=== PATIENT | male | born 1955 | race Two or more races ===

== ENCOUNTER 2025-03-09 12:25 | Emergency (ER) | payer OTHER ==
[~2025-03-09] VITALS: Ht 182.9 cm; Wt 77.0 kg
--- NOTE | 2025-03-09 12:35 | ED.PDOC ---
GI ASSESSMENT HPI Comments 69 y.o male coming from [facility], with PMHx of GERD, DM and HTN, presents to the ED via EMS for a chief complaint of diffused abdominal pain associated with nausea and coffee ground emesis that started last night. Patient describes pain as a burning sensation that is constant and has no alleviating or precipitating factors. Patient has vomited a total of 6 times today recorded by staff in which all were described as coffee ground with no bright red blood nor blood clots noted. 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 Patient denies any fever, chills, dysuria, cough, SOB or chest pain. Time Seen by MD: 12:26 Reviewed Notes: Nurses Notes, Assessment Analyst Notes, Medications, Allergies Allergies: Coded Allergies: NO KNOWN ALLERGIES (Unverified , 03/09/25) Home Meds Active Scripts Amoxicillin Trihydrate (Amoxicillin) 500 Mg Tab, 1 TAB PO TID for 5 Days, #15 TAB Prov:ADA MURRAY MD 03/09/25 Ondansetron Odt 4MG Tab (ZOFRAN PO) 4 Mg Tb, 4 MG PO DAILY for 5 Days, #5 TAB ODT TAB-DISSOLVE IN MOUTH, THEN SWALLOW Prov:ADA MURRAY MD 03/09/25 Metronidazole (Flagyl) 500 Mg Tab, 1 TAB PO TID for 5 Days, #15 TAB Prov:ADA MURRAY MD 03/09/25 Information Source: Patient, Emergency Med Personnel, Past Medical Record Mode of Arrival: EMS Timing: Hours Duration: Since onset Prehospital treatment: Treatment (4mg zofran ODT ) Quality: Burning Vomitus: Coffee Grounds Stool: Normal Severity: Moderate Recent: None Recent Hx of: Other Pain Location: Diffuse Modifying Factors: Nothing Associated sign and symptoms: Nausea, Vomiting, Abdominal Pain Past Medical History PAST MEDICAL HISTORY: DM, GERD, HTN Surgical History: AKA (bilateral legs ) Family History Family History: Reviewed,noncontributory to illness Social History Smoker: Non-Smoker Alcohol: Denies ETOH Use Drugs: Denies Drug Use Lives In: Home Constitutional: denies: chills, diaphoresis, fatigue, fever, malaise, sweats, weakness, others EENTM: denies: blurred vision, double vision, ear bleeding, ear discharge, ear drainage, ear pain, ear ringing, eye pain, eye redness, hearing loss, mouth pain, mouth swelling, nasal discharge, nose bleeding, nose congestion, nose pain, photophobia, tearing, throat pain, throat swelling, voice changes, others Respiratory: denies: cough, hemoptysis, orthopnea, SOB at rest, shortness of breath, SOB with excertion, stridor, wheezing, others Gastrointestinal: reports: abdominal pain, nausea, vomiting; denies: abdomen distended, blood streaked bowels, constipated, diarrhea, dysphagia, difficulty swallowing, hematemesis, melena, poor appetite, poor fluid intake, rectal bleeding, rectal pain, others Genitourinary: denies: burning, dysuria, flank pain, frequency, hematuria, incontinence, penile discharge, penile sore, pain, testicle pain, testicle swelling, urgency, others Neurological: denies: dizziness, fainting, headache, left sided numbness, left sided weakness, numbness, paresthesia, pre-existing deficit, right sided numbness, right sided weakness, seizure, speech problems, tingling, tremors, weakness, others Musculoskeletal: denies: back pain, gout, joint pain, joint swelling, muscle pain, muscle stiffness, neck pain, others Integumetry: denies: bruises, change in color, change in hair/nails, dryness, laceration, lesions, lumps, rash, wounds, others Allergic/Immunocompromised: denies: Difficulty Healing, Frequent Infections, Hives, Itching, others Hematologic/Lymphatic: denies: anemia, blood clots, easy bleeding, easy brui sing, swollen glands, others Endocrine: denies: excessive hunger, excessive sweating, excessive thirst, ex cessive urination, flushing, intolerance to cold, intolerance to heat, unexplained weight gain, unexplained weight loss, others Psychiatric: denies: anxiety, bipolar disorder, depression, hopeless, panic disorder, schizophrenia, sleepless, suicidal, others All Other Systems: Reviewed and Negative Physical Exam General Appearance: Moderate Distress HEENT: Normal ENT Inspection, Pharynx Normal, TMs Normal Neck: Full Range of Motion, Non-Tender, Normal, Normal Inspection Respiratory: Chest Non-Tender, Lungs Clear, No Accessory Muscle Use, No Respiratory Distress, Normal Breath Sounds Cardiovascular: No Edema, No JVD, No Murmur, No Gallop, Normal Peripheral Pulses, Regular Rate/Rhythm Breast Exam: Deferred Gastrointestinal: No Organomegaly, Non Tender, No Pulsatile Mass, Normal Bowel Sounds, Soft Genitalia: Deferred Pelvic: Deferred Rectal: Deferred Extremities: No calf tenderness Musculoskeletal : Apperance: Normal Neurologic: Alert Cerebellar Function: Normal Reflexes: Normal Skin: Dry, Normal Color, Warm Peripheral Pulses: 3+ Radial (R), 3+ Radial (L) Lymphatic: No Adenopathy Was a procedure done? Was a procedure done?: No GI differential Dx Differential Diagnosis: Constipation, Diverticular disease, Esophageal rupture, Esophagitis, Gastritis/PUD, Gastroenteritis, GI hemorrhage, Electrolyte Imbalance, Ischemic Bowel, Anemia, Esophageal Varicies, Stress Ulcer X-Ray, Labs, Meds, VS Vital Signs Date Time Temp Pulse Resp B/P (MAP) Pulse Ox O2 Delivery O2 Flow Rate FiO2 03/09/25 16:00 97.8 91 10 134/68 (90) 97 97.8 03/09/25 15:20 83 10 134/68 03/09/25 14:55 90 12 160/76 03/09/25 13:30 97.8 86 10 159/81 (107) 97 97.8 03/09/25 12:31 98.2 92 18 153/83 (106) 95 98.2 Lab Test 03/09/25 12:58 Range/Units White Blood Count 11.0 H 4.4-10.8 10^3/uL Red Blood Count 4.00 L 4.5-5.90 10^6/uL Hemoglobin 13.6 13.5-17.5 g/dL Hematocrit 39.8 L 41.0-53.0 % Mean Corpuscular Volume 99.5 80.0-100.0 fL Mean Corpuscular Hemoglobin 34.0 H 28.0-32.0 pg Mean Corpuscular Hemoglobin Concent 34.2 32.0-36.0 g/dL Red Cell Distribution Width 13.1 11.8-14.3 % Platelet Count 234 140-450 10^3/uL Mean Platelet Volume 9.4 6.9-10.8 fL Neutrophils (%) (Auto) 82.8 H 37.0-80.0 % Lymphocytes (%) (Auto) 7.8 L 10.0-50.0 % Monocytes (%) (Auto) 8.7 0.0-12.0 % Eosinophils (%) (Auto) 0.2 0.0-7.0 % Basophils (%) (Auto) 0.5 0.0-2.0 % Neutrophils # (Auto) 9.1 H 1.6-8.6 10 ^3/uL Lymphocytes # (Auto) 0.9 0.4-5.4 10 ^3/uL Monocytes # (Auto) 1.0 0-1.3 10 ^3/uL Eosinophils # (Auto) 0 0-0.8 10 ^3/uL Basophils # (Auto) 0.1 0-0.2 10 ^3/uL Nucleated Red Blood Cells 0.0 % Sodium Level 131 L 136-145 mmol/L Potassium Level 4.6 3.5-5.1 mmol/L Chloride Level 101 98-107 mmol/L Carbon Dioxide Level 23 20-31 mmol/L Anion Gap 7 5-15 Blood Urea Nitrogen 16 9-23 mg/dL Creatinine 0.67 L 0.700-1.30 mg/dL Glomerular Filtration Rate Calc 102 >90 mL/min BUN/Creatinine Ratio 23.9 H 10.0-20.0 Serum Glucose 122 H 74-106 mg/dL Calcium Level 8.1 L 8.7-10.4 mg/dL Current Medications Medications (Trade) Dose Ordered Sig/Rozina Route Start Time Stop Time Status Last Admin Sodium Chloride 1,000 ml @ 1,000 mls/hr Q1H ONCE IV 03/09/25 12:30 03/09/25 13:29 DC 03/09/25 14:55 Ondansetron HCl (Zofran) 4 mg ONCE ONCE IV 03/09/25 12:30 03/09/25 12:31 DC 03/09/25 14:55 Morphine Sulfate 4 mg ONCE ONCE IV 03/09/25 12:30 03/09/25 12:31 DC 03/09/25 14:55 Piperacillin Sod/ Tazobactam Sod 100 ml @ 100 mls/hr ONCE ONCE IV 03/09/25 15:15 03/09/25 16:14 DC 03/09/25 15:35 Patient alert. Complaining of nausea vomiting. Vitals stable. Answering questions. Bilateral lower extremity amputation above knee. Saturation pristine. No fever. No shortness a breath. No chest pain. Establish intravenous access. Was given fluids. CT scan of the abdomen was not done because abdomen was soft nontender pristine physical examination. Was given Zofran. Was given prescription of Flagyl antibiotic. Explained to the patient. Continue monitoring. Explained the condition to [facility] physician ran the labs all agree that he can follow up with his primary care physician. Was told to come back if there is any problem. Stable upon discharge. [facility] will send transportation [phone]. Time of 1ST Reevaluation: 12:29 Reevaluation 1ST: Improved Patient Education/Counseling: Diagnosis, Treatment, Prognosis Family Education/Counseling: No Family Present Departure 1 Departure Time of Disposition: 12:38 Impression: Primary Impression: Gastroenteritis Disposition: 01 HOME / SELF CARE / HOMELESS Condition: Good e-Prescriptions Amoxicillin Trihydrate (Amoxicillin) 500 Mg Tab 1 TAB PO TID for 5 Days, #15 TAB Prov: ADA MURRAY MD 03/09/25 Ondansetron Odt 4MG Tab (ZOFRAN PO) 4 Mg Tb 4 MG PO DAILY for 5 Days, #5 TAB ODT TAB-DISSOLVE IN MOUTH, THEN SWALLOW Prov: ADA MURRAY MD 03/09/25 Metronidazole (Flagyl) 500 Mg Tab 1 TAB PO TID for 5 Days, #15 TAB Prov: ADA MURRAY MD 03/09/25 Discharged With: Self Critical Care Note Critical Care Time?: No Stability Stability form required: No Heart Score Heart Score: Heart Score Response (Comments) Value History N/A 0 EKG N/A 0 Age N/A 0 Risk Factors N/A 0 Troponin N/A 0 Total 0 I personally scribed for ADA MURRAY MD ([email or web address]) on 03/09/25 at 12:35. Electronically submitted by [employer] [employer] ([facility]). ADA MURRAY MD Mar 09, 2025 12:35
[2025-03-09 13:15] LABS: Eosinophils # (auto) 0 10 ^3/uL (0-0.8); Hemoglobin 13.6 g/dL (13.5-17.5); Neutrophils % (auto) 82.8 % (37.0-80.0); Red Cell Distribution Width 13.1 % (11.8-14.3)
[2025-03-09 13:16] LABS: Basophils # (auto) 0.1 10 ^3/uL (0-0.2); Basophils % (auto) 0.5 % (0.0-2.0); Eosinophils % (auto) 0.2 % (0.0-7.0); Hematocrit 39.8 % (41.0-53.0); Lymphocytes # (auto) 0.9 10 ^3/uL (0.4-5.4); Lymphocytes % (auto) 7.8 % (10.0-50.0); Mean Corpuscular Hgb Conc. 34.2 g/dL (32.0-36.0); Mean Corpuscular Volume 99.5 fL (80.0-100.0); Monocytes % (auto) 8.7 % (0.0-12.0); Neutrophils # (auto) 9.1 10 ^3/uL (1.6-8.6); Platelet Count (auto) 234 10^3/uL (140-450)
[2025-03-09 13:20] LABS: Chloride 101 mmol/L (98-107); Potassium 4.6 mmol/L (3.5-5.1)
[2025-03-09 13:21] LABS: Anion Gap 7 (5-15); Carbon Dioxide 23 mmol/L (20-31)
[2025-03-09 13:26] LABS: BUN/Creatinine Ratio 23.9 (10.0-20.0); Blood Urea Nitrogen 16 mg/dL (9-23)
[2025-03-09 13:32] LABS: Calcium 8.1 mg/dL (8.7-10.4); Glucose 122 mg/dL (74-106); Sodium 131 mmol/L (136-145)
[2025-03-09] MEDS ORDERED: METR-344 PO (14:50)
[2025-03-09] MEDS ORDERED: ZOFR4T PO (14:50)
[2025-03-09] MEDS ORDERED: AMOX500T3 PO (14:50)
[2025-03-09] MEDS: ONDANSETRON HCL 4 MG/2 ML VIAL IV ONE (14:55)
[2025-03-09] MEDS: SODIUM CHLORIDE 0.9% 1,000 ML IV ONE (14:55)
[2025-03-09] MEDS: MORPHINE SULFATE 4 MG/ML SYR/VIAL IV ONE (14:55)
[2025-03-09] MEDS: PIPERACILLIN-TAZOB 3.375GM 100 ML IV ONE (15:35)
[2025-03-09 16:00] VITALS: BP 134/68; PULSE 91; RESP 10; TEMP 97.8; O2SAT 97
== END 2025-03-09 16:12 | disposition home or self-care (01) ==
LOC: ER 12:25 → EDBD 12:25 → ER 16:12
DX: R11.2 Nausea with vomiting, unspecified (principal); K52.9 Noninfective gastroenteritis and colitis, unspecified; E11.9 Type 2 diabetes mellitus without complications; I10 Essential (primary) hypertension; Z89.612 Acquired absence of left leg above knee
CPT/HCPCS: 36415; 80048; 85025; 96361; 96365; 96375; 99285; J2270; J2405; J2543; J7030